=== PATIENT | female | born 1990 | race Native Hawaiian/Other Pacific Islander ===

== ENCOUNTER 2019-08-27 09:19 | Emergency (ER) | payer SELFPAY ==
[2019-08-27 09:28] VITALS: BP 112/65
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
[2019-08-27] MEDS ORDERED: IBUPROFEN 800 MG TAB PO ONE (10:53)
== END 2019-08-27 11:01 | disposition home or self-care (01) ==
LOC: ED 09:19
DX: M54.2 Cervicalgia (principal); M62.838 Other muscle spasm; M25.512 Pain in left shoulder; Z79.899 Other long term (current) drug therapy; V49.49XA Driver injured in collision with other motor vehicles in traffic accident, initial encounter; Y93.89 Activity, other specified; Y92.410 Unspecified street and highway as the place of occurrence of the external cause; Y99.8 Other external cause status